=== PATIENT | female | born 1935 ===

== ENCOUNTER 2017-10-10 11:50 | Inpatient (IN) | payer MEDICARE, OTHER ==
[~2017-10-10] VITALS: Ht 165.1 cm; Wt 69.4 kg
--- NOTE | ~2017-10-10 | RHP ---
PATIENT: SUNI MCCALLUM MEDICAL RECORD: [id number] ACCOUNT: [id number] LOCATION:[facility]1116 : 39 ADMISSION DATE: 10/10/17 REHABILITATION HISTORY AND PHYSICAL EXAMINATION POST ADMISSION PHYSICIAN EXAMINATION DATE OF ADMISSION: 10/10/2017 ADMITTING DIAGNOSES: Left hip femoral neck fracture, status post left hip endoprosthesis. HISTORY OF PRESENT ILLNESS: The patient is a 81-year-old female, admitted to inpatient rehab for an orthopedic left hip fracture after a fall. She was helping her get a dehumidifer out of the back of a car and tripped and fell in the garage. She presented to the ER at [facility] on 10/07/2017 for evaluation. X-ray showed a left hip femoral neck fracture. She denied loss of consciousness or pain anywhere else. On 10/08/2017, she went to the OR for left hip endoprosthesis. She has got a past medical history of hypertension, hypothyroidism, osteoporosis. Previously she lived with her spouse and was independent of ADLs and mobility without aid. Currently, she is moderate to max assist for ADLs and mobility. She has decreased independence with ADLs, transfers, and standing tolerance and balance. She wants to be able to return back home to her prior level of functioning. COMORBIDITIES: In this patient include acute postoperative blood loss anemia, hypothyroidism, hypertension, osteoporosis, immobility, pain and self-care deficit. PAST MEDICAL HISTORY: Significant for hypothyroidism, hypertension, and osteoporosis. PAST SURGICAL HISTORY: Includes hip surgery. ALLERGIES: SULFA. CURRENT MEDICATIONS: Include Floranex 460 mg daily, omega 3 daily, multivitamin daily, metoprolol 25 mg daily, Mag-Ox 400 mg daily, Synthroid 75 mcg daily, gemfibrozil 600 mg daily, vitamin D 1000 units daily, aspirin chewable 81 mg daily, Dulcolax 5 mg daily as needed for constipation, MiraLax 17 grams in 8 ounces of water daily, [place] which we will adjust to 2.5 mg daily, and Eliquis 2.5 mg b.i.d. HABITS: No alcohol or tobacco use. FAMILY HISTORY: Noncontributory. SOCIAL HISTORY: The patient hopes to return back home and get back to her prior level of functioning. REVIEW OF SYSTEMS: GENERAL: Does complain of weakness and fatigue. HEENT: Denies cold, cough, or congestion. CARDIOVASCULAR: Denies chest pain. HISTORY AND PHYSICAL [id number] SUNI MCCALLUM PHYSICAL EXAMINATION: VITAL SIGNS: Stable, afebrile. GENERAL: Elderly female, in no distress upon exam. HEENT: Normocephalic and atraumatic. Mucosa moist. NECK: Supple. No adenopathy. LUNGS: Clear at this time. HEART: Regular rate and rhythm. ABDOMEN: Benign. EXTREMITIES: Consistent with hip replacement, postop swelling appears normal. NEUROLOGIC: She does have some noted proximal muscle weakness. LABORATORY DATA: Her white count 5.0, H&H 9.6 and 28.9, and platelet count is 217. Sodium 138, potassium 3.9, BUN and creatinine of 13 and 0.8. Blood sugar is noted to be 97. ASSESSMENT: This 81-year-old female patient admitted to rehab with the working diagnosis of status post left hip endoprosthesis secondary to fracture. The patient has potential to make improvement. We instituted the following multidisciplinary therapies including but not limited to physical, occupational, respiratory, speech, nutritional services, prosthetics, and orthotics. Given her complex medical condition and risks for more complications, rehabilitation services cannot be provided at a low level of care such as a group home facility. PLAN: 1. Admit to [facility] for intensive inpatient therapy to include the following disciplines: A. Physical therapy to improve gait, all transfer skills and bed mobility to a modified independent level. B. Occupational therapy to improve activities of daily living to a modified independent level. C. Case management to assist with discharge planning and placement options. D. Nutrition to assist with nutritional needs. E. Rehabilitation nursing to assist in monitoring the patient's underlying medical conditions and to assist with any type of bowel or bladder management. 2. The patient's current medication and medical care will be continued. 3. The patient will be placed on standard fall precautions. 4. The patient's estimated length of stay is approximately 7-10 days. 5. We will discuss this patient during care team staff meeting this week. 6. Will follow up with her H&H and make sure we do not have to give any blood. TRANSINT:[id number] Voice Confirmation ID: [id number] DOCUMENT ID: [id number] YECENIA notes whether there has been none or any medical/functional change since admission: - No change since preadmission screen. YECENIA attests patient continues to be appropriate for IRF: - Continues to be appropriate. HISTORY AND PHYSICAL [id number] SUNI MCCALLUM SCOTT MD at 1516 CC: [id number] DICTATION DATE: 10/11/17 0858 ASSOCIATE PROFESSOR OF ARCHAEOLOGY: 10/11/17 1156 ADM IN [place] [id number] [place] [address]
[2017-10-10] MEDS ORDERED: BAYER CHEWABLE81 MG PO (16:18)
[2017-10-10] MEDS ORDERED: VITAMIN D31000 UNI2 PO (16:19)
[2017-10-10] MEDS ORDERED: GEMFIBROZIL600 MG PO (16:20)
[2017-10-10] MEDS ORDERED: MAG-OX 400 MG400 MG PO (16:22)
[2017-10-10] MEDS ORDERED: SYNTHROID75 MCG PO (16:22)
[2017-10-10] MEDS ORDERED: METOPROLOL TART25 MG PO (16:23)
[2017-10-10] MEDS ORDERED: MULTIPLE VITAMI1 TA1 PO (16:24)
[2017-10-10] MEDS ORDERED: OMEGA-3100 MG PO (16:27)
[2017-10-10] MEDS ORDERED: RED YEAST RICE600 MG PO (16:30)
[2017-10-10] MEDS ORDERED: FLORINEF 0.1 M0.1 MG PO (16:30)
[2017-10-10] MEDS ORDERED: ELIQUIS2.5 MG PO (16:32)
[2017-10-10] MEDS ORDERED: HYDROCODON-ACET15 ML PO (16:34)
[2017-10-10] MEDS ORDERED: PATOWN (16:39)
[2017-10-10 16:50] VITALS: BP 151/58; BMI 25.5
[2017-10-10 20:00] VITALS: BP 126/50
[2017-10-11 06:34] LABS: BASOPHILS 0.2 % (0-2); EOSINOPHILS 0 % (0-7); HEMATOCRIT 28.9 % (36.0-48.0); HEMOGLOBIN 9.6 g/dL (12-16); IMMATURE GRANULOCYTES 0.4 % (0-5); LYMPHOCYTES 20.8 % (15-50); MCH 30.5 pg (26.0-34.0); MCHC 33.2 g/dL (31.0-37.0); MCV 91.7 fL (80.0-100.0); MEAN PLATELET VOLUME 9.2 fL (7.4-10.4); MONOCYTES 8.2 % (2-11); NEUTROPHILS 70.4 % (40-80); PLATELET COUNT 217 10x3/uL (130-400); RBC 3.15 10x6/uL (4.00-5.40); RDW 13.2 % (11.5-14.5)
[2017-10-11 06:57] LABS: ANION GAP 10.7 mmol/L (8-16); CALCIUM 8.5 mg/dL (8.5-10.1); CARBON DIOXIDE 27.2 mmol/L (21.0-32.0); CREATININE - SERUM 0.8 mg/dL (0.6-1.3); POTASSIUM - SERUM 3.9 mmol/L (3.5-5.1)
[2017-10-11 08:00] VITALS: BP 129/39
[2017-10-11 13:39] VITALS: Ht 165.1 cm; Wt 69.4 kg
[2017-10-11 19:00] VITALS: BP 126/50
[2017-10-12 08:00] VITALS: BP 112/43
[2017-10-12 19:00] VITALS: BP 127/47
[2017-10-13 07:31] LABS: BASOPHILS 0.3 % (0-2); EOSINOPHILS 0 % (0-7); HEMATOCRIT 27.3 % (36.0-48.0); HEMOGLOBIN 9.2 g/dL (12-16); IMMATURE GRANULOCYTES 0.5 % (0-5); LYMPHOCYTES 14.4 % (15-50); MCH 30.8 pg (26.0-34.0); MCHC 33.7 g/dL (31.0-37.0); MCV 91.3 fL (80.0-100.0); MEAN PLATELET VOLUME 8.9 fL (7.4-10.4); MONOCYTES 6.3 % (2-11); NEUTROPHILS 78.5 % (40-80); RBC 2.99 10x6/uL (4.00-5.40); RDW 13.2 % (11.5-14.5)
[2017-10-13 07:55] LABS: ANION GAP 13.5 mmol/L (8-16); CALCIUM 8.6 mg/dL (8.5-10.1); CARBON DIOXIDE 27.8 mmol/L (21.0-32.0); CREATININE - SERUM 0.8 mg/dL (0.6-1.3); POTASSIUM - SERUM 4.3 mmol/L (3.5-5.1)
[2017-10-13 08:00] VITALS: BP 119/61
[2017-10-13 08:04] LABS: PLATELET COUNT 265 10x3/uL (130-400)
[2017-10-13 21:06] VITALS: BP 128/49
[2017-10-14 08:02] VITALS: BP 140/60
[2017-10-14 19:26] LABS: APPEARANCE HAZY (CLEAR); BILIRUBIN NEGATIVE (NEGATIVE); COLOR YELLOW (YELLOW); GLUCOSE NEGATIVE (NEGATIVE); KETONE NEGATIVE (NEGATIVE); NITRITE POSITIVE (NEGATIVE); PROTEIN NEGATIVE (NEGATIVE); UROBILINOGEN NORMAL (NORMAL)
[2017-10-14 19:28] LABS: BACTERIA MANY /hpf (NONE SEEN); EPITHELIAL CELLS 0-5 /hpf (0-5); RED CELLS - URINE RARE /hpf (0-5)
[2017-10-14 19:36] VITALS: BP 133/69
[2017-10-15 12:01] VITALS: BP 116/42
[2017-10-15 19:25] VITALS: BP 123/68
[2017-10-16 04:52] LABS: BASOPHILS 0.3 % (0-2); EOSINOPHILS 0 % (0-7); HEMATOCRIT 28.1 % (36.0-48.0); IMMATURE GRANULOCYTES 1.1 % (0-5); LYMPHOCYTES 17.8 % (15-50); MCH 30.1 pg (26.0-34.0); MEAN PLATELET VOLUME 8.9 fL (7.4-10.4); MONOCYTES 8.7 % (2-11); NEUTROPHILS 72.1 % (40-80); RBC 2.99 10x6/uL (4.00-5.40); RDW 13.6 % (11.5-14.5); WBC 6.2 10x3/uL (4.8-10.8)
[2017-10-16 04:54] LABS: PLATELET COUNT 351 10x3/uL (130-400)
[2017-10-16 05:36] LABS: CALCIUM 8.8 mg/dL (8.5-10.1); CARBON DIOXIDE 28.2 mmol/L (21.0-32.0); CREATININE - SERUM 0.8 mg/dL (0.6-1.3); POTASSIUM - SERUM 4.2 mmol/L (3.5-5.1)
[2017-10-16 07:00] VITALS: BP 121/51
[2017-10-16 20:00] VITALS: BP 121/56
[2017-10-17 08:00] VITALS: BP 108/49
[2017-10-17 20:15] VITALS: BP 130/61
[2017-10-18 08:00] VITALS: BP 110/50
[2017-10-18 09:52] LABS: BASOPHILS 0.5 % (0-2); EOSINOPHILS 0 % (0-7); HEMATOCRIT 30.6 % (36.0-48.0); IMMATURE GRANULOCYTES 0.8 % (0-5); LYMPHOCYTES 15.8 % (15-50); MCHC 32.7 g/dL (31.0-37.0); MCV 94.7 fL (80.0-100.0); MEAN PLATELET VOLUME 8.9 fL (7.4-10.4); MONOCYTES 6.9 % (2-11); PLATELET COUNT 495 10x3/uL (130-400); RBC 3.23 10x6/uL (4.00-5.40); RDW 14.1 % (11.5-14.5); WBC 6.4 10x3/uL (4.8-10.8)
[2017-10-18 10:03] LABS: ANION GAP 10.7 mmol/L (8-16); CALCIUM 9.1 mg/dL (8.5-10.1); CARBON DIOXIDE 28.3 mmol/L (21.0-32.0); CREATININE - SERUM 0.9 mg/dL (0.6-1.3)
[2017-10-18 19:00] VITALS: BP 117/51
[2017-10-19 08:00] VITALS: BP 120/62
[2017-10-19 19:00] VITALS: BP 128/61
[2017-10-20 08:00] VITALS: BP 103/52
== END 2017-10-20 11:49 | disposition home or self-care (01) | DRG 560 ==
LOC: D.REHAB 11:50
PROVIDERS: Emergency Medicine
DX: S72.002D Fracture of unspecified part of neck of left femur, subsequent encounter for closed fracture with routine healing (principal); D62 Acute posthemorrhagic anemia; E03.9 Hypothyroidism, unspecified; I10 Essential (primary) hypertension; M81.0 Age-related osteoporosis without current pathological fracture; W19.XXXD Unspecified fall, subsequent encounter; Z47.1 Aftercare following joint replacement surgery; Z96.642 Presence of left artificial hip joint